=== PATIENT | male | born 1930 | race Two or more races ===

== ENCOUNTER 2016-08-06 22:11 | Emergency (ER) | payer MEDICARE, MEDICAID ==
[~2016-08-06] VITALS: Ht 165.1 cm; Wt 73.9 kg
[2016-08-06] MEDS ORDERED: Oxymetazoline 0.05% Na Spray 30ml NASAL ONE (22:30)
[2016-08-06] MEDS ORDERED: Bacitracin Oint UD TOPIC ONE ×2 (22:55→23:00)
[2016-08-06 23:05] VITALS: BP 123/78
[2016-08-06] MEDS ORDERED: AFRIN NASAL SPR30 ML NASAL (23:13)
[2016-08-06 23:20] LABS: BASOPHILS % (AUTO) 1.3 % (0.0-2.0); EOSINOPHILS % (AUTO) 4.1 % (0.0-3.0); LYMPHOCYTES % (AUTO) 31.6 % (20.0-45.0); MEAN CORPUSCULAR HEMOGLOBIN 31.1 PG (27.0-31.0); MEAN CORPUSCULAR HGB CONC 32.5 G/DL (32.0-36.0); MEAN CORPUSCULAR VOLUME 96 FL (80-99); MEAN PLATELET VOLUME 6.2 FL (6.5-10.1); MONOCYTES % (AUTO) 9.6 % (1.0-10.0); NEUTROPHILS % (AUTO) 53.4 % (45.0-75.0); PLATELET COUNT 287 K/UL (150-450); RED BLOOD COUNT 4.48 M/UL (4.70-6.10); RED CELL DISTRIBUTION WIDTH 13.4 % (11.6-14.8); WHITE BLOOD COUNT 7.1 K/UL (4.8-10.8)
[2016-08-06 23:27] LABS: PROTHROMBIN TIME 10.3 SEC (9.30-11.50)
[2016-08-07] MEDS ORDERED: LOW DOSE ASPIRI81 MG PO (00:03)
--- NOTE | 2016-08-11 23:17 | Emergency Room Report ---
History of Present Illness General Chief Complaint: Nosebleed Source: Patient Present Illness HPI Patient is an 86 year old male brought in by family after episode of nosebleeding. Bleeding began earlier in the day. It was intermittent and had resolved with direct pressure. Patient denied recent trauma. He denied other locations of bleeding. He takes baby aspirin and is not on other anticoagulation. He had not been febrile. He denied dizziness or weakness. Allergies: Coded Allergies: No Known Allergies (Unverified , 08/07/16) Patient History Past Medical History: see triage record Reviewed Nursing Documentation: PMH: Agreed, PSxH: Agreed Nursing Documentation-PMH Past Medical History: No History, Except For Hx Diabetes: Yes Review of Systems All Other Systems: negative except mentioned in HPI Physical Exam Vital Signs Date Time Temp Pulse Resp B/P Pulse Ox O2 Delivery O2 Flow Rate FiO2 08/06/16 22:17 97.9 60 14 152/82 99 Room Air General Appearance: well appearing, no apparent distress, alert, GCS 15, non- toxic Head: normocephalic, atraumatic ENT: hearing grossly normal, normal voice, other - two small areas to right side of nares without active bleeding which appear to have recently bled Neck: full range of motion, supple Respiratory: no respiratory distress, speaking full sentences Cardiovascular #1: normal inspection, normal peripheral pulses, regular rate, rhythm Genitourinary: normal inspection Musculoskeletal: normal inspection, no calf tenderness Neurologic: normal inspection, alert, oriented x3, responsive, foundation assistant III-XII nml as tested, motor strength/tone normal, normal gait Psychiatric: mood/affect normal Skin: normal color, no rash Medical Decision Making Diagnostic Impression: Primary Impression: Anterior epistaxis ER Course Patient presented for nosebleeding. Differential diagnosis included but was not limited to coagulopathy, anemia, anterior epistaxis, posterior epistaxis. Patient was noted to have no active bleeding. Patients treatment options were discussed with patient and family and they declined cautery and nasal packing. They stated they would return if bleeding recurred. Patient was given Afrin nasal spray to right nare. Patient and family were given return precautions. Labs Test 08/06/16 22:49 White Blood Count 7.1 K/UL (4.8-10.8) Red Blood Count 4.48 M/UL (4.70-6.10) Hemoglobin 13.9 G/DL (14.2-18.0) Hematocrit 42.9 % (42.0-52.0) Mean Corpuscular Volume 96 FL (80-99) Mean Corpuscular Hemoglobin 31.1 PG (27.0-31.0) Mean Corpuscular Hemoglobin Concent 32.5 G/DL (32.0-36.0) Red Cell Distribution Width 13.4 % (11.6-14.8) Platelet Count 287 K/UL (150-450) Mean Platelet Volume 6.2 FL (6.5-10.1) Neutrophils (%) (Auto) 53.4 % (45.0-75.0) Lymphocytes (%) (Auto) 31.6 % (20.0-45.0) Monocytes (%) (Auto) 9.6 % (1.0-10.0) Eosinophils (%) (Auto) 4.1 % (0.0-3.0) Basophils (%) (Auto) 1.3 % (0.0-2.0) Prothrombin Time 10.3 SEC (9.30-11.50) Prothromb Time International Ratio 1.0 (0.9-1.1) Activated Partial Thromboplast Time 28 SEC (23-33) Last Vital Signs Date Time Temp Pulse Resp B/P Pulse Ox O2 Delivery O2 Flow Rate FiO2 08/06/16 23:05 65 12 123/78 94 Room Air 08/06/16 23:05 98.0 Status: improved Disposition: HOME, SELF-CARE Condition: Stable Scripts Oxymetazoline HCl (Afrin) 15 Ml [place] 2 SPRAY NASAL TWICE A DAY for 1 Day, SPRAY Prov: Bonilla Hayes 08/06/16 Patient Instructions: Nosebleed, [id number] Bonilla Hayes Aug 11, 2016 23:17
== END 2016-08-06 23:16 | disposition home or self-care (01) ==
LOC: EMR 22:30
DX: R04.0 Epistaxis (principal); Z79.82 Long term (current) use of aspirin; E11.9 Type 2 diabetes mellitus without complications
CPT/HCPCS: 36415; 85025; 85610; 85730; 99282

== ENCOUNTER 2016-08-06 23:51 | Emergency (ER) | payer MEDICARE, MEDICAID ==
[~2016-08-06] VITALS: Ht 167.6 cm; Wt 99.8 kg
[~2016-08-06 23:51] MED LIST: AFRIN NASAL SPR30 ML NASAL
[2016-08-07] MEDS ORDERED: Silver Nitrate Stick TOPIC ONE
[2016-08-07] MEDS ORDERED: LOW DOSE ASPIRI81 MG PO (00:03)
[2016-08-07 00:31] VITALS: BP 160/90
[2016-08-07 01:18] VITALS: BP 160/90
--- NOTE | 2016-08-11 23:07 | Emergency Room Report ---
History of Present Illness General Chief Complaint: Nosebleed Source: Patient Present Illness HPI Patient is an 86 year old male recently seen by me for nosebleed. Patient was noted to have recurrent nosebleeding. Patient returned to emergency department for further care. He denied dizziness or severe blood loss. He had episodes earlier in the day prior to other visit. Allergies: Coded Allergies: No Known Allergies (Unverified , 08/07/16) Patient History Past Medical History: see triage record Reviewed Nursing Documentation: PMH: Agreed, PSxH: Agreed Nursing Documentation-PMH Past Medical History: No History, Except For Hx Hypertension: Yes Hx Diabetes: Yes Review of Systems All Other Systems: negative except mentioned in HPI Physical Exam Vital Signs Date Time Temp Pulse Resp B/P Pulse Ox O2 Delivery O2 Flow Rate FiO2 08/06/16 23:56 98.1 66 16 162/90 95 Room Air Sp02 EP Interpretation: reviewed, normal General Appearance: normal inspection, well appearing, no apparent distress, alert, GCS 15, non-toxic Head: atraumatic Eyes: bilateral eye normal inspection ENT: hearing grossly normal, normal voice, other - small area to right nostril anterior septum without active bleeding and prominent vessels with recent bleeding. Neck: normal inspection, full range of motion, supple, no bony tend Respiratory: normal inspection, lungs clear, normal breath sounds, no respiratory distress, no retraction, no wheezing Cardiovascular #1: regular rate, rhythm, no edema Gastrointestinal: normal inspection, normal bowel sounds, non tender, soft, no guarding, no hernia Genitourinary: no CVA tenderness Musculoskeletal: normal inspection, back normal, normal range of motion Neurologic: normal inspection, alert, oriented x3, responsive, castings trimmer III-XII nml as tested, speech normal Psychiatric: normal inspection, judgement/insight normal, mood/affect normal Skin: normal inspection, normal color, no rash Procedures Additional Procedure Procedure Narrative Cauterized small area of right nasal septum with silver nitrate under direct visualization. Patient tolerated well. No recurrence of bleeding was noted. Medical Decision Making Diagnostic Impression: Primary Impression: Anterior epistaxis ER Course Patient presented for nosebleed. Differential diagnosis included but was not limited to anterior epistaxis, posterior epistaxis, coagulopathy, anemia, among others. Patient has a benign exam and doesn't appear to require repeat testing. Laboratory studies were unremarkable on prior visit. Right side of septum was noted to have some small areas with bleeding vessels. Patient agreed to cautery this visit. The bleeding was stopped with silver nitrate cautery. Patient was observed without rebleeding. Patient was sent home to follow up with his primary care physician. He was advised to resume his regular medications. He was to return for increased bleeding, dizziness, fever or other concerns. Last Vital Signs Date Time Temp Pulse Resp B/P Pulse Ox O2 Delivery O2 Flow Rate FiO2 08/07/16 01:18 98.1 66 16 160/90 95 Room Air Status: improved Disposition: HOME, SELF-CARE Condition: Stable Referrals: NON PHYSICIAN (PCP) Patient Instructions: Nosebleed, [id number] Bonilla Hayes Aug 11, 2016 23:07
== END 2016-08-07 00:50 | disposition home or self-care (01) ==
LOC: EMR 08-07 00:06
DX: R04.0 Epistaxis (principal); E11.9 Type 2 diabetes mellitus without complications; I10 Essential (primary) hypertension
CPT/HCPCS: 99283